=== PATIENT | female | born 1980 | race Caucasian/White ===

== ENCOUNTER → 2019-09-26 10:42 | Outpatient (BNVA) | payer BC, SELFPAY | PROVIDERS: Family Provider Family Medicine; PCP Family Medicine; Visit Provider Nurse Practitioner Women's Health | DX: R30.0 Dysuria (principal) | CPT/HCPCS: 80053 ==

== ENCOUNTER → 2019-11-02 10:59 | Outpatient (BNVA) | payer BC, SELFPAY | PROVIDERS: Family Provider Family Medicine; PCP Family Medicine; Visit Provider Family Medicine | DX: M25.571 Pain in right ankle and joints of right foot (principal); M25.572 Pain in left ankle and joints of left foot | CPT/HCPCS: 80053; 85025; 85651; 86038; 86140; 86431 ==

== ENCOUNTER → 2019-11-15 12:16 | Outpatient (BNVA) | payer BC, SELFPAY | PROVIDERS: Family Provider Family Medicine; PCP Family Medicine; Visit Provider Nurse Practitioner Women's Health | DX: N93.9 Abnormal uterine and vaginal bleeding, unspecified (principal) | CPT/HCPCS: 84439; 84443 ==

== ENCOUNTER → 2020-02-03 17:04 | Outpatient (BNVA) | payer BC, SELFPAY | PROVIDERS: PCP Family Medicine; Visit Provider Emergency Medicine | DX: Z20.828 Contact with and (suspected) exposure to other viral communicable diseases (principal) | CPT/HCPCS: 87635 ==

== ENCOUNTER 2020-08-05 13:41 | Outpatient (CLI) | payer OTHER, SELFPAY ==
--- NOTE | 2020-08-05 14:00 | MM_ITS ---
WS: [id number] DIAGNOSTIC BILATERAL DIGITAL MAMMOGRAM WITH implant displacement views and CAD LEFT breast ultrasound, limited HISTORY: left breast pain COMPARISON: 01/23/2016 TECHNIQUE: Bilateral craniocaudad, mediolateral oblique, and mediolateral views, implant displacement views are submitted. Computer aided detection utilized. Breast composition: There are scattered areas of fibroglandular density. Breast implants are present. There is slight volume loss in the LEFT breast implant as compared to 01/23/2016. Capsular contractio n. Markers at 5 and 9:00 as directed by the patient for pain. LEFT breast ultrasound, limited. Ultrasound is directed to the areas of pain. No abnormalities noted at 4:00 or 7:00 in the area of pa in. MM/[id number] IMPRESSION: BI-RADS: 2-Benign FOLLOW UP: 1 Year Follow-up Partially collapsed LEFT breast implant, new since 01/23/2016.
--- NOTE | 2020-08-05 15:00 | US_ITS ---
WS: [id number] DIAGNOSTIC BILATERAL DIGITAL MAMMOGRAM WITH implant displacement views and CAD LEFT breast ultrasound, limited HISTORY: left breast pain COMPARISON: 01/23/2016 TECHNIQUE: Bilateral craniocaudad, mediolateral oblique, and mediolateral views, implant displacement views are submitted. Computer aided detection utilized. Breast composition: There are scattered areas of fibroglandular density. Breast implants are present. There is slight volume loss in the LEFT breast implant as compared to 01/23/2016. Capsular contractio n. Markers at 5 and 9:00 as directed by the patient for pain. LEFT breast ultrasound, limited. Ultrasound is directed to the areas of pain. No abnormalities noted at 4:00 or 7:00 in the area of pa in. US/US breast LT limited* [id number] IMPRESSION: BI-RADS: 2-Benign FOLLOW UP: 1 Year Follow-up Partially collapsed LEFT breast implant, new since 01/23/2016.
== END 2020-08-05 13:42 | disposition home or self-care (01) ==
LOC: RADSHAW 13:47
PROVIDERS: PCP Family Medicine; Visit Provider Family Medicine
DX: N64.4 Mastodynia (principal)
CPT/HCPCS: 76642; 77066

== ENCOUNTER 2022-04-30 16:35 | Emergency (ER) | payer OTHER, SELFPAY ==
--- NOTE | 2022-04-30 16:55 | ED_ITS ---
HPI - Back Pain/Injury General: Chief Complaint: Back Pain/Injury Stated Complaint: low back pain Time Seen by Provider: 04/30/22 16:50 Source: patient Mode of arrival: ambulatory History of Present Illness: 41-year-old female who presents to the emergency room with complaining of low back pain. She is not sure of anything that particularly seem to set it off. No trauma. She thinks it may have been sleeping on family or bed for period of time. She denies any dysuria urgency or frequency she has significant low back pain without radiation into the extremities no fecal incontinence or urinary retention MD elicited complaint: back pain Pertinent past history: prior back pain Onset (ago): day(s) Timing: constant Severity: mild Similar Symptoms Previously: Yes Location: lumbar spine Radiation: none Exacerbating factors: none Relieving factors: none Associated symptoms: Deny abdominal pain, arthralgias, chills, change in bowel habits, difficulty walking, dysuria, fatigue, fecal incontinence, fever(s), hematuria, myalgias, nausea, numbness, syncope, tingling/numbness/burning, urinary frequency, urinary urgency, vomiting or weakness Review of Systems Const: Denies: fever(s), chills, fatigue or malaise ENMT: Denies: throat pain, ear or mastoid pain, nasal discharge or nasal congestion Card: Denies: chest pain, palpitations, irregular heart rhythm, edema or syncope Resp: Denies: dyspnea, productive cough or non-productive cough GI: Denies: abdominal pain, nausea, vomiting, fecal incontinence or change in bowel habits : Denies: dysuria, urinary frequency, urinary urgency or hematuria Musc: Reports: back pain Skin/Breast: Denies: rash or pruritus Neuro: Denies: difficulty walking PFS ED PFSH: Medical History Chronic neck pain No pertinent past medical history neghx: htn,dm,thyroid,DVT/PE Surgical History H/O breast augmentation (~2011) gel implants Family History Daughter Bleeding disorder vonWillebrand Son Bleeding disorder vonWillebrand Father Bleeding disorder Hypertension Mother Breast cancer Family/Other Colon cancer Maternal Aunt Diabetes Maternal uncle Grandmother Diabetes Maternal Denies family history of Ovarian cancer Heart disease Uterine cancer Thyroid disease Stroke Social History Smoking and tobacco status: never smoked Alcohol intake: never Physical Exam Const: GENERAL APPEARANCE: cooperative and comfortable ORIENTATION/CONSC IOUSNESS: Yes awake, Yes oriented to person, Yes oriented to place and Yes oriented to time HENMT: COMMON NORMALS: normocephalic, atraumatic and hearing grossly normal bilaterally HEAD & SCALP: normocephalic and atraumatic Resp: COMMON NORMALS: normal respiratory effort, No retractions, No use of accessory muscles and clear to auscultation bilaterally AUSCULTATION: clear to auscultation bilaterally Cardio: COMMON NORMALS: regular rate, regular rhythm and No murmurs present (Cardio) RATE: regular rate RHYTHM: regular rhythm GI: COMMON NORMALS: Soft to palpation and No hepatosplenomegaly present AUSCULTATION: Yes normoactive bowel sounds PALPATION: Yes Soft to palpation, No Tenderness to palpation present (GI), No Guarding due to palpation present (GI) and Yes No hepatosplenomegaly present Extremity: COMMON NORMALS: normal to inspection, capillary refill normal, no clubbing, cyanosis or edema, no calf tenderness and no pedal edema Neuro: SENSORIUM/ORIENTATION: Yes oriented to person, Yes oriented to place and Yes oriented to time OTHER: Deep tendon reflexes +2/4 patellar tendon dorsum plantarflexion ankle 5 5 sensation lower extremities normal no straight leg raising negative Skin: COMMON NORMALS: no rashes or lesions noted GENERAL SKIN EXAM: no rashes or lesions noted Course Vital Signs: Vital signs: Vital Signs Temperature 98.3 F 04/30/22 17:32 Pulse Rate 80 04/30/22 17:32 Respiratory Rate 14 04/30/22 17:32 Blood Pressure 127/90 04/30/22 17:32 Pulse Oximetry 100 04/30/22 17:32 Oxygen Delivery Me thod 04/30/22 17:32 MDM - Back Pain/Injury Medical Decision Making No sign of significant impingement or cauda equina syndrome at this time. Recommend anti-inflammatories muscle relaxers and steroid taper give hydrocodone to use as needed. Follow-up with his primary care if not improving she may need advanced imaging to further evaluate. Discussed with patient that since she does not have any red flag symptoms or any recent trauma we did not do imaging in this setting. Medical Records I reviewed the patient's medical records. Labs I reviewed the patient's lab results. Discharge Plan Discharge Patient Disposition: Home Clinical Impression: Strain of lumbar region Condition: Stable Prescriptions: New prednisone 20 mg tablet 20 mg PO TID Qty: 15 0RF Rx Instructions: 1 p.o. 3 times daily x3 days, 1 p.o. twice daily x2 days, 1 p.o. daily x2 days diclofenac sodium 75 mg tablet,delayed release (DR/EC) 75 mg PO Q12H PRN (Reason: pain) Qty: 20 0RF tizanidine 4 mg tablet 4 mg PO Q6H PRN (Reason: muscle spasticity) Qty: 20 0RF Rx Instructions: do not exceed 3 doses per 24 hrs hydrocodone-acetaminophen 5-325 mg tablet 1 tab PO Q6H PRN (Reason: pain) Qty: 15 0RF No Action escitalopram oxalate 10 mg tablet 10 mg PO DAILY Qty: 90 1RF Discharge Orders: Discharge ED (Routine); Ordered 04/30/22 Ordered By: Mert Deluna Referrals: Meri Vigil DO [Primary Care Provider] - Discharge Diet: Usual diet Discharge Activity: Resume usual activity Patient Instructions: Opioid Safety, Pain Management Coding Level of Care Code ED Supervisor Final for Rosetta Meyers
[2022-04-30 17:17] VITALS: RESP 16
[2022-04-30] MEDS: morphine 4 mg/mL SDV 1 mL IVP (17:17)
[2022-04-30] MEDS: ketorolac 30 mg/mL INJ IVP (17:17)
[2022-04-30] MEDS: dexamethasone 10 mg/mL INJ IVP (17:18)
[2022-04-30] MEDS: orphenadrine 30 mg/mL Inj 2 mL 60 MG IVP (17:18)
[2022-04-30 17:32] VITALS: BP 127/90; PULSE 80; RESP 14; TEMP 36.8; O2SAT 100
[2022-04-30 18:28] VITALS: BP 125/94; PULSE 79; RESP 12; O2SAT 99
== END 2022-04-30 18:32 | disposition home or self-care (01) ==
PROVIDERS: Emergency Provider Family Medicine; PCP Family Medicine
DX: S39.012A Strain of muscle, fascia and tendon of lower back, initial encounter (principal); X58.XXXA Exposure to other specified factors, initial encounter
CPT/HCPCS: 96374; 96375; 99284; J1100; J1885; J2270; J2360

== ENCOUNTER → 2022-06-02 15:00 | Outpatient (BNVA) | payer OTHER, SELFPAY | PROVIDERS: PCP Family Medicine; Visit Provider Nurse Practitioner Women's Health | DX: Z12.4 Encounter for screening for malignant neoplasm of cervix (principal); N93.9 Abnormal uterine and vaginal bleeding, unspecified | CPT/HCPCS: 84443; 84702; 85025; 87624 ==

== ENCOUNTER → 2022-06-24 11:01 | Outpatient (BNVA) | payer OTHER, SELFPAY | PROVIDERS: PCP Family Medicine; Visit Provider Nurse Practitioner Women's Health | DX: R10.2 Pelvic and perineal pain (principal) | CPT/HCPCS: 76830 ==

== ENCOUNTER 2022-07-14 14:18 | Outpatient (CLI) | payer OTHER, SELFPAY ==
--- NOTE | 2022-07-14 14:27 | MM_ITS ---
WS: [id number] BILATERAL 3D TOMOSYNTHESIS DIGITAL SCREENING MAMMOGRAPHY WITH CAD CLINICAL INFORMATION: Z12.39 - Encounter for other screening for malignant neop... HISTORY: Screening mammogram. No current complaints. COMPARISON: August 05, 2020 TECHNIQUE: Bilateral CC and MLO views. FINDINGS: Bilateral breast implants. Capsular contractions bilaterally. Slightly smaller LEFT breast implant is stable. Scattered fibroglandular densities bilaterally. No suspicious focal mass, asymmetry, calcifications, or architectural distortion. No evidence of malignancy. A few incidental punctate calcifications. MM/[id number] IMPRESSION: BI-RADS: 2-Benign FOLLOW UP: 1 Year Follow-up Recommend return to annual screening mammography.
== END 2022-07-14 14:19 | disposition home or self-care (01) ==
PROVIDERS: PCP Family Medicine; Visit Provider Nurse Practitioner Women's Health
DX: Z12.31 Encounter for screening mammogram for malignant neoplasm of breast (principal)
CPT/HCPCS: 77063; 77067

== ENCOUNTER → 2023-05-03 13:45 | Outpatient (BNVA) | payer OTHER, SELFPAY | PROVIDERS: PCP Family Medicine; Visit Provider Nurse Practitioner Women's Health | DX: R53.83 Other fatigue (principal); N92.0 Excessive and frequent menstruation with regular cycle; N95.1 Menopausal and female climacteric states; L65.9 Nonscarring hair loss, unspecified; M25.50 Pain in unspecified joint; G47.9 Sleep disorder, unspecified | CPT/HCPCS: 82306; 84439; 84443; 84481; 85025 ==

== ENCOUNTER → 2023-05-13 15:18 | Outpatient (BNVA) | payer OTHER, SELFPAY | PROVIDERS: PCP Family Medicine; Visit Provider Family Medicine | DX: R53.83 Other fatigue (principal); Z86.39 Personal history of other endocrine, nutritional and metabolic disease; R00.2 Palpitations; F41.1 Generalized anxiety disorder; N95.1 Menopausal and female climacteric states; L65.9 Nonscarring hair loss, unspecified | CPT/HCPCS: 86431 ==

== ENCOUNTER → 2023-05-17 15:00 | Outpatient (BNVA) | payer OTHER, SELFPAY | PROVIDERS: PCP Family Medicine; Visit Provider Family Medicine | DX: R53.83 Other fatigue (principal) | CPT/HCPCS: 85651; 86140 ==

== ENCOUNTER → 2023-07-29 16:26 | Outpatient (BNVA) | payer OTHER, SELFPAY | PROVIDERS: PCP Family Medicine; Visit Provider Family Medicine | DX: R53.83 Other fatigue (principal); Z86.39 Personal history of other endocrine, nutritional and metabolic disease | CPT/HCPCS: 82565; 84443; 85025; 85651; 86140; 86200; 86376; 86431; 86705; 86706; 86709; 86803; 87340 ==

== ENCOUNTER 2023-08-19 10:17 | Outpatient (CLI) | payer OTHER, SELFPAY ==
[2023-08-22 12:16] LABS: THYROID PEROXIDASE ANTIBODIES 1 IU/mL (<9)
[2023-08-22 12:35] LABS: Anti-Double Strand DNA AB 1 IU/mL; CENTROMERE B ANTIBODY <1.0 NEG AI (<1.0 NEG); JO-1 ANTIBODY <1.0 NEG AI (<1.0 NEG); JO-1 Antibody <1.0 NEG AI (<1.0 NEG); RNP ANTIBODY <1.0 NEG AI (<1.0 NEG); SCL-70 ANTIBODY 2.0 POS AI (<1.0 NEG); SJOGREN'S ANTIBODY (SS-A) <1.0 NEG AI (<1.0 NEG); SM ANTIBODY <1.0 NEG AI (<1.0 NEG); SS A Ro Sjogrens Antibody <1.0 NEG AI (<1.0 NEG); SS-B <1.0 NEG AI (<1.0 NEG); SS-B/LA IGG <1.0 NEG AI (<1.0 NEG); Smith Antibody <1.0 NEG AI (<1.0 NEG)
[2023-08-22 14:20] LABS: ANA SCREEN, IFA NEGATIVE (NEGATIVE)
[2023-08-22 15:46] LABS: Cyclic Citrullinated Peptide <16 UNITS
[2023-08-22 16:28] LABS: COMPLEMENT COMPONENT C3C 103 mg/dL (83-193); COMPLEMENT COMPONENT C4C 27 mg/dL (15-57)
[2023-08-23 12:04] LABS: ANCA Screen NEGATIVE (NEGATIVE)
[2023-08-24 15:09] LABS: COMPLEMENT, TOTAL (CH50) 17 U/mL (31-60)
[2023-08-25 01:19] LABS: Beta 2 Glycoprotein IGA <2.0 U/mL (<20.0); Beta 2 Glycoprotein IGG <2.0 U/mL (<20.0); Beta 2 Glycoprotein IGM <2.0 U/mL (<20.0)
== END 2023-08-19 10:18 | disposition home or self-care (01) ==
LOC: LAB 10:17
PROVIDERS: PCP Family Medicine; Visit Provider Family Medicine
DX: R53.83 Other fatigue (principal)
CPT/HCPCS: 36415; 86036; 86146; 86160; 86162; 86200; 86215; 86225; 86235; 86255; 86376

== ENCOUNTER 2023-11-17 06:08 | Observation (INO) | payer OTHER, SELFPAY ==
[2023-11-17] VITALS (11 sets, daily range): BP systolic 96–112; BP diastolic 60–71; PULSE 76–79; RESP 15–19; TEMP 36.4–37; O2SAT 97–100; BMI 25.6; BMI 26.3
--- NOTE | 2023-11-17 06:14 | ED_ITS ---
HPI - General Adult General: Chief complaint: Neuro Symptoms/Deficit Stated complaint: stroke symptoms Time Seen by Provider: 11/17/23 06:13 History of Present Illness: Associated symptoms: Deny chest pain, dyspnea or rash Related Data Home Medications Medication Instructions Recorded Confirmed tirzepatide 5 mg/0.5 mL mg SUBCUT 07/29/23 07/29/23 subcutaneous pen injector (Félix) Previous Rx's Medication Instructions Recorded escitalopram oxalate 10 mg tablet 10 mg PO DAILY #90 tabs 05/13/23 estradiol 0.5 mg tablet See Rx Instructions .Route 07/20/23 .COMPLEX #90 tabs progesterone micronized 100 mg 200 mg (2 x 100 mg) PO .bedtime 08/17/23 capsule (Prometrium) #60 caps Allergies Allergy/AdvReac Type Severity Reaction Status Date / Time adhesive tape Allergy ALGY-Bliste Verified 11/17/23 06:22 r amoxicillin Allergy ALGY-Hives Verified 11/17/23 06:22 cephalexin Allergy ALGY-Hives Verified 11/17/23 06:22 codeine Allergy ALGY-Hives Verified 11/17/23 06:22 latex Allergy ALGY-Bliste Verified 11/17/23 06:22 r Sulfa (Sulfonamide AdvReac ADR-Nausea Verified 11/17/23 06:22 Antibiotics) Review of Systems Const: Denies: fever(s) or chills Card: Denies: chest pain Resp: Denies: dyspnea GI: Denies: abdominal pain : Denies: dysuria, urinary frequency or urinary urgency Musc: Denies: neck pain or back pain Skin/Breast: Denies: rash PFSH ED PFSH: Medical History Fatigue Perimenopausal symptoms MAHI (generalized anxiety disorder) Carrier of von Willebrand disease No pertinent past medical history neghx: htn,dm,thyroid,DVT/PE Chronic neck pain Surgical History H/O breast augmentation (~2011) gel implants Family History Daughter Bleeding disorder vonWillebrand Son Bleeding disorder vonWillebrand Father Bleeding disorder Hypertension Mother Breast cancer Family/Other Colon cancer Maternal Aunt Diabetes Maternal uncle Grandmother Diabetes Maternal Denies family history of Ovarian cancer Heart disease Uterine cancer Thyroid disease Stroke Social History Smoking and tobacco/nicotine status: never used tobacco/nicotine Alcohol intake: current Substance/Drug Use: never Adopted: No service: No Current occupational exposures/hazards: No Physical Exam Const: COMMON NORMALS: no acute distress GENERAL APPEARANCE: cooperative an d comfortable ORIENTATION/CONSCIOUSNESS: Yes awake, Yes oriented to person, Yes oriented to place and Yes oriented to time HENMT: COMMON NORMALS: normocephalic, atraumatic and hearing grossly normal bilaterally HEAD & SCALP: normocephalic and atraumatic Resp: COMMON NORMALS: normal respiratory effort, No retractions, No use of accessory muscles and clear to auscultation bilaterally AUSCULTATION: clear to auscultation bilaterally Cardio: COMMON NORMALS: regular rate, regular rhythm and No murmurs present (Cardio) RATE: regular rate RHYTHM: regular rhythm GI: COMMON NORMALS: Soft to palpation and No hepatosplenomegaly present AU SCULTATION: Yes normoactive bowel sounds PALPATION: Yes Soft to palpation, No Tenderness to palpation present (GI), No Guarding due to palpation present (GI) and Yes No hepatosplenomegaly present Extremity: COMMON NORMALS: normal to inspection, capillary refill normal, no clubbing, cyanosis or edema, no calf tenderness and no pedal edema Neuro: SENSORIUM/ORIENTATION: Yes oriented to person, Yes oriented to place and Yes oriented to time Skin: COMMON NORMALS: no rashes or lesions noted GENERAL SKIN EXAM: no rashes or lesions noted Discharge Plan Discharge Condition: Stable Prescriptions: No Action Mounjaro 5 mg/0.5 mL pen injector SUBCUT escitalopram oxalate 10 mg tablet 10 mg PO DAILY Qty: 90 1RF estradiol 0.5 mg tablet See Rx Instructions .ROUTE .COMPLEX Qty: 90 3RF Dose Instruction: TAKE 1 TABLET BY MOUTH EVERY DAY WITH PROGESTERONE Rx Instructions: TAKE 1 TABLET BY MOUTH EVERY DAY WITH PROGESTERONE progesterone micronized [Prometrium] 100 mg capsule 200 mg PO .bedtime Qty: 60 11RF Rx Instructions: take in conjunction with estradiol Referrals: Yefri Younger MD [Primary Care Provider] - Coding Level of Care Code ED Rehabilitation Director for Rosetta Meyers
--- NOTE | 2023-11-17 06:22 | CTR_ITS ---
PROCEDURE INFORMATION: Exam: CT Head Without Contrast Exam date and time: 11/17/2023 6:25 AM Age: 43 years old Clinical indication: Stroke-like symptoms; Dizziness/giddiness and headache; Additional info: Symptoms of acute stroke TECHNIQUE: Imaging protocol: Computed tomography of the head without contrast. Radiation optimization: All CT scans at this facility use at least one of these dose optimization techniques: automated exposure control; mA and/or kV adjustment per patient size (includes targeted exams where dose is matched to clinical indication); or iterative reconstruction. Other technique: STROKE PROTOCOL was implemented. COMPARISON: No relevant prior studies available. RADIATION DOSE METRICS: Total DLP (mGy-cm): 1052 FINDINGS: Brain: Normal. No hemorrhage. Unremarkable white matter. No mass effect. Cerebral ventricles: No ventriculomegaly. Paranasal sinuses: Visualized sinuses are unremarkable. No fluid levels. Mastoid air cells: Visualized mastoid air cells are well aerated. Bones: Unremarkable. No acute fracture. Soft tissues: Unremarkable. CT/CT head thrombolytic [id number] IMPRESSION: No acute intracranial abnormality. ASSESSMENT: ASPECTS ([place] Stroke Program Early CT Score) is 10.
--- NOTE | 2023-11-17 06:24 | ED_ITS ---
HPI - Neuro Symptoms/Deficit 2 General: Chief Complaint: Neuro Symptoms/Deficit Stated Complaint: stroke symptoms Time Seen by Provider: 11/17/23 06:13 History of Present Illness: 43-year-old female who presents to the e mergency room complaining of not feeling well for the last several days. 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 Drooping of the corner of the mouth unable to raise the eyebrow. This morning she woke up around 4 AM she states she felt off but did not have any specific symptoms. She had decided to do some yoga at around 5 and noticed that she had weakness in her right arm and her right leg. She states the drooping on the right side of her face that is chronic is seem to be about the same but she had numbness in that distribution which she had not had previously as well as numbness in the right arm and leg which she had not previously had. In addition to this she feels like she has difficult time controlling her arm and leg more so the leg than the arm. Her initial NIH score is 4. Time: 06:13 Last Observed Normal: 05:00 Location: right arm, right leg and ataxia Severity: mild Quality: weak and numb Relieving factors: none Exacerbating factors: none Context: sudden onset On Anticoagulants: No Associated symptoms: Deny chest pain Treatments Prior to Arrival: none Related Data Home Medications Medication Instructions Recorded Confirmed tirzepatide 5 mg/0.5 mL 5 mg SUBCUT Q7D 07/29/23 11/17/23 subcutaneous pen injector (Mounjaro) ibuprofen 200 mg tablet (Advil) 200 mg PO Q6H PRN Pain 11/17/23 11/17/23 Previous Rx's Medication Instructions Recorded escitalopram oxalate 10 mg tablet 10 mg PO DAILY #90 tabs 05/13/23 estradiol 0.5 mg tablet See Rx Instructions .Route 07/20/23 .COMPLEX #90 tabs progesterone micronized 100 mg 200 mg (2 x 100 mg) PO .bedtime 08/17/23 capsule (Prometrium) #60 caps Allergies Allergy/AdvReac Type Severity Reaction Status Date / Time adhesive tape Allergy ALGY-Bliste Verified 11/17/23 06:22 r amoxicillin Allergy ALGY-Hives Verified 11/17/23 06:22 cephalexin Allergy ALGY-Hives Verified 11/17/23 06:22 codeine Allergy ALGY-Hives Verified 11/17/23 06:22 latex Allergy ALGY-Bliste Verified 11/17/23 06:22 r Sulfa (Sulfonamide AdvReac ADR-Nausea Verified 11/17/23 06:22 Antibiotics) Review of Systems 2 Const: Denies: fever(s) or chills Card: Denies: chest pain Resp: Denies: dyspnea GI: Denies: abdominal pain : Denies: dysuria, urinary frequency or urinary urgency Musc: Denies: neck pain or back pain Skin/Breast: Denies: rash PFSH ED 2 PFSH: Medical History Fatigue Perimenopausal symptoms MAHI (generalized anxiety disorder) Carrier of von Willebrand disease No pertinent past medical history neghx: htn,dm,thyroid,DVT/PE Chronic neck pain Surgical History H/O breast augmentation (~2011) gel implants Family History Daughter Bleeding disorder vonWillebrand Son Bleeding disorder vonWillebrand Father Bleeding disorder Hypertension Mother Breast cancer Family/Other Colon cancer Maternal Aunt Diabetes Maternal uncle Grandmother Diabetes Maternal Denies family history of Ovarian cancer Heart disease Uterine cancer Thyroid disease Stroke Social History Smoking and tobacco/nicotine status: never used tobacco/nicotine Alcohol intake: current Substance/Drug Use: never Adopted: No service: No Current occupational exposures/hazards: No Female Reproductive History: Date of last menstrual period: 11/09/23 NIH stroke score 2 NIHSS: Level Of Consciousness - 1a: 0 Level Of Consciousness Questions - 1b: Both Correct Level Of Consciousness Commands - 1c: Both Correct Best Gaze - 2: Normal Visual Hernandez - 3: No Visual Loss Facial Palsy - 4: N ormal Motor Arm Right - 5: No Drift Motor Arm Left - 5: No Drift Motor Leg Right - 6: Drift Motor Leg Left - 6: No Drift Limb Ataxia - 7: Present In Two Limbs Sensory - 8: Mild To Moderate Loss Best Language - 9: No Aphasia Dysarthia - 10: Normal Extinction And Inattention - 11: 0 Score: Total Score: 4 Physical Exam 2 Const: GENERAL APPEARANCE: cooperative ORIENTATION/CONSCIOUSNESS: Yes awake, Yes oriented to person, Yes oriented to place and Yes oriented to time HENMT: COMMON NORMALS: normocephalic, atraumatic and hearing grossly normal bilaterally HEAD & SCALP: normocephalic and atraumatic Resp: COMMON NORMALS: normal respiratory effort, No retractions, No use of accessory muscles and clear to auscultation bilaterally AUSCULTATION: clear to auscultation bilaterally Cardio: COMMON NORMALS: regular rate, regular rhythm and No murmurs present (Cardio) RATE: regular rate RHYTHM: regular rhythm GI: COMMON NORMALS: Soft to palpation and No hepatosplenomegaly present A USCULTATION: Yes normoactive bowel sounds PALPATION: Yes Soft to palpation, No Tenderness to palpation present (GI), No Guarding due to palpation present (GI) and Yes No hepatosplenomegaly present Extremity: COMMON NORMALS: normal to inspection, capillary refill normal, no clubbing, cyanosis or edema, no calf tenderness and no pedal edema Neuro: SENSORIUM/ORIENTATION: Yes oriented to person, Yes oriented to place and Yes oriented to time OTHER: See NIH scoring Skin: COMMON NORMALS: no rashes or lesions noted GENERAL SKIN EXAM: no rashes or lesions noted Course 2 Vital Signs: Vital signs: Vital Signs Temperature 98.6 F 11/17/23 06:40 Pulse Rate 78 11/17/23 08:22 Respiratory Rate 15 11/17/23 08:22 Blood Pressure 112/62 11/17/23 08:22 Pulse Oximetry 100 11/17/23 08:22 Oxygen Delivery Me thod Room Air 11/17/23 08:22 MDM - Neuro Symptoms/Deficit Medical Decision Making Patient returned from CT and went back to reexamine after discussing the case with Dr. Cantu. In her chart I had noted that she did said she is a carrier for von Willebrand's. Her children have been diagnosed with mild cases of von Willebrand's. She has not had any confirmed diagnosis she states when she was tested she was told she tested negative. Her symptoms seem to be improving I observed her ambulating from the bathroom back to her room without any difficulty or ataxia. Repeat testing she still has some mild ataxia compared to initial exam but now only in the right leg and is much improved from before. At the time of the initial testing she was quite tearful concerned that she may be having a stroke. She is doing better now has both with ataxia. Her weakness and drift in the right leg has resolved. She still has the facial droop but according to her it is not really any different than she has had in the past. On scratch testing in her arm and leg she states it still is some difference between the right and left leg and the right and left arms. Discussed the case with Dr. Cantu at this time he recommends holding off on treatment until he arrives and sees the patient he is and route. Her initial CT was reviewed in [facility] and is negative for acute bleed. Dr. Cantu arrived at 7 AM to evaluate the patient. Dr. Cantu has seen evaluate the patient her symptoms are improved she now has her stroke score of 2. He does not recommend any thrombolytics. Does recommend further workup. Have discussed with Dr. Gonzalez that he is ASA reviewed CTA head and neck we will also get an MRI of the head and place on observation. Medical Records I reviewed the patient's medical records. Lab Data I reviewed the patient's lab results. 11/17/23 06:21 11/17/23 06:[address] 11/17/23 06:22 IMPRESSION: No acute intracranial abnormality. ASSESSMENT: ASPECTS (Rhea Stroke Program Early CT Score) is 10. Head MRI 11/17/23 07:42 IMPRESSION: 1. No evidence of restricted diffusion to suggest acute ischemia. 2. No suspicious intracranial signal abnormalities. 3. No hemosiderin on the susceptibility weighted images. Laboratory Results WBC 6.07 10^3/uL (3.29-11.43) 11/17/23 06:21 RBC 4.62 10^6/uL (3.85-5.65) 11/17/23 06:21 Hgb 13.30 g/dL (11.27-16.99) 11/17/23 06:21 Hct 41.0 % (36-47) 11/17/23 06:21 MCV 88.7 fl (85-98) 11/17/23 06:21 MCH 28.8 pg (27-33) 11/17/23 06:21 MCHC 32.4 g/dL (30-55) 11/17/23 06:21 RDW 12.5 % (12.1-15.1) 11/17/23 06:21 Plt Count 236 10^3/cmm (157-399) 11/17/23 06:21 MPV 11.6 fL (7.4-10.4) H 11/17/23 06:21 Neut % (Auto) 50.2 % 11/17/23 06:21 Lymph % (Auto) 34.1 % 11/17/23 06:21 Letcher % (Auto) 11.2 % 11/17/23 06:21 Eos % (Auto) 3.1 % 11/17/23 06:21 Baso % (Auto) 1.2 % 11/17/23 06:21 Neut # (Auto) 3.05 10^3/uL (1.8-7.7) 11/17/23 06:21 Lymph # (Auto) 2.1 10^3/uL (0.8-4.8) 11/17/23 06:21 Letcher # (Auto) 0.7 10^3/uL (0.2-0.9) 11/17/23 06:21 Eos # (Auto) 0.2 10^3/uL (0.0-0.8) 11/17/23 06:21 Baso # (Auto) 0.1 10^3/uL (0.0-0.1) 11/17/23 06:21 Nucleated RBC % (auto) 0 % 11/17/23 06:21 Nucleated RBCs # 0.0 /100WBC 11/17/23 06:21 PT 12.40 SECONDS (12.1-14.9) 11/17/23 06:21 INR 0.90 (0.8-1.2) 11/17/23 06:21 APTT 29.2 SECONDS (23.9-36.7) 11/17/23 06:21 Sodium 137 mmol/L (136-145) 11/17/23 06:21 Potassium 3.7 mmol/L (3.5-5.1) 11/17/23 06:21 Chloride 103 mmol/L (98-107) 11/17/23 06:21 Carbon Dioxide 26 mmol/L (22-29) 11/17/23 06:21 Anion Gap 11.7 (5-19) 11/17/23 06:21 BUN 6 mg/dL (6-20) 11/17/23 06:21 Creatinine 0.6 mg/dL (0.5-0.9) 11/17/23 06:21 GFR Calculation 109.6 mL/min (90-130) 11/17/23 06:21 Glucose 90 mg/dL (65-115) 11/17/23 06:21 POC Glucose 78 mg/dL (70-110) 11/17/23 06:23 Calculated Osmolality 281 mOsm/kg (285-295) L 11/17/23 06:21 Calcium 9.0 mg/dL (8.5-10.5) 11/17/23 06:21 Total Bilirubin 0.4 mg/dL (0.15-1.2) 11/17/23 06:21 AST 15 U/L (0-32) 11/17/23 06:21 ALT 9 U/L (0-33) 11/17/23 06:21 Alkaline Phosphatase 51 U/L (35-105) 11/17/23 06:21 Total Protein 7.0 g/dL (6.6-8.7) 11/17/23 06:21 Albumin 4.4 g/dL (3.5-5.2) 11/17/23 06:21 Globulin 2.6 g/dL (1.3-4.6) 11/17/23 06:21 TSH 3.69 uIU/mL (0.27-4.20) 11/17/23 06:21 Ser , Semi-Qnt 1.00 mIU/mL 11/17/23 06:21 Urine Color Yellow (Yellow) 11/17/23 06:30 Urine Appearance Clear (CLEAR) 11/17/23 06:30 Urine pH 7.0 (5-7) 11/17/23 06:30 Ur Specific Braggs 1.003 (1.005-1.030) L 11/17/23 06:30 Urine Protein Negative (Negative) 11/17/23 06:30 Urine Glucose (UA) Negative (Normal) 11/17/23 06:30 Urine Ketones Negative (Negative) 11/17/23 06:30 Urine Blood Negative (Negative) 11/17/23 06:30 Urine Nitrate Negative (Negative) 11/17/23 06:30 Urine Bilirubin Negative (Negative) 11/17/23 06:30 Urine Urobilinogen 0.2 mg/dL (Negative) 11/17/23 06:30 Ur Leukocyte Esterase Negative (Negative) 11/17/23 06:30 Amorphous Sediment Not Reportable 11/17/23 06:30 Urine Opiates Screen Negative ng/mL (Negative) 11/17/23 06:30 Ur Barbiturates Screen Negative ng/mL (Negative) 11/17/23 06:30 Ur Phencyclidine Scrn Negative ng/mL (Negative) 11/17/23 06:30 Ur Amphetamines Screen Negative ng/mL (Negative) 11/17/23 06:30 U Benzodiazepines Scrn Negative ng/mL (Negative) 11/17/23 06:30 Urine Cocaine Screen Negative ng/mL (Negative) 11/17/23 06:30 U Marijuana (THC) Screen Negative ng/mL (Negative) 11/17/23 06:30 All radiology interpretation(s) finalized by discharge (MRI negative CTA head still pending hospitalist will follow-up with results) Discharge Plan Discharge Patient Disposition: Placed in Observation Admit Provider: Art Sanchez Clinical Impression: TIA (transient ischemic attack), Hormone replacement therapy, Facial nerve injury, trauma Coding Level of Care Code ED White Washer Piler for Rosetta Meyers
[2023-11-17 06:26] LABS: Basophils # 0.1 10^3/uL (0.0-0.1); Basophils % 1.2 %; Eosinophils # 0.2 10^3/uL (0.0-0.8); Eosinophils % 3.1 %; Lymphocytes # 2.1 10^3/uL (0.8-4.8); Lymphocytes % 34.1 %; Mean Corpuscular HGB Conc 32.4 g/dL (30-55); Mean Corpuscular Hemoglobin 28.8 pg (27-33); Mean Corpuscular Volume 88.7 fl (85-98); Mean Platelet Volume 11.6 fL (7.4-10.4); Monocytes # 0.7 10^3/uL (0.2-0.9); Monocytes % 11.2 %; Neutrophils # 3.05 10^3/uL (1.8-7.7); Neutrophils % 50.2 %; Nucleated Red Blood Cells % 0 %; Platelet Count 236 10^3/cmm (157-399); Red Blood Count 4.62 10^6/uL (3.85-5.65); Red Cell Distribution Width 12.5 % (12.1-15.1); White Blood Count 6.07 10^3/uL (3.29-11.43)
[2023-11-17 06:26] LABS: Glucose Point of Care 78 mg/dL (70-110)
--- NOTE | 2023-11-17 06:35 | ECG_ITS ---
[facility] Test Date: 2023-11-17 Pat Name: Kaity Sandra Department: Room: Gender: Female Telephone Sales Representative: : 1980 Requested By: Mert Esquivel Order Number: [id number] Sharita MD: Iván Whyte M.D. Measurements Intervals [place] Rate: 70 P: 53 MS: 165 QRS: 61 QRSD: 93 T: 52 QT: 397 QTc: 431 Interpretive Statements SINUS RHYTHM LOW QRS VOLTAGE IN PRECORDIAL LEADS [QRS DEFLECTION < 1.0 mV IN CHEST LEADS] Compared to ECG 06/24/2018 09:32:25 Low QRS voltage now present Electronically Signed On 11-17-2023 18:17:14 CDT by Iván Whyte M.D. [id number]
[2023-11-17 06:41] LABS: Alanine Aminotransferase 9 U/L (0-33); Albumin Level 4.4 g/dL (3.5-5.2); Alkaline Phosphatase 51 U/L (35-105); Anion Gap 11.7 (5-19); Aspartate Amino Transferase 15 U/L (0-32); Blood Urea Nitrogen 6 mg/dL (6-20); Carbon Dioxide 26 mmol/L (22-29); Chloride 103 mmol/L (98-107); Creatinine Clr Calc Pharmacy 106.9425; Globulin 2.6 g/dL (1.3-4.6); Glomerular Filtration Rate 109.6 mL/min (90-130); Glucose 90 mg/dL (65-115); Osmolality Calculated 281 mOsm/kg (285-295); Potassium 3.7 mmol/L (3.5-5.1); Sodium 137 mmol/L (136-145); Total Bilirubin 0.4 mg/dL (0.15-1.2)
[2023-11-17 06:43] LABS: Partial Thromboplastin Time 29.2 SECONDS (23.9-36.7)
[2023-11-17 06:46] LABS: Add Urine Microscopic? NO
[2023-11-17 06:59] LABS: Amphetamines Screen Urine Negative (Negative); Barbiturates Screen Urine Negative (Negative); Benzodiazepines Screen Urine Negative (Negative); Cocaine Screen Urine Negative (Negative); Opiate Screen Urine Negative (Negative); PCP Screen Urine Negative (Negative); THC Screen Urine Negative (Negative)
[2023-11-17 07:01] LABS: Bilirubin Urine Negative (Negative); Blood Urine Negative (Negative); Glucose Urine UA Negative (Normal); Ketones Urine Negative (Negative); Leukocyte Esterase Urine Negative (Negative); Nitrate Urine Negative (Negative); Protein Urine Negative (Negative); Specific Gravity, Urine 1.003 (1.005-1.030); Urine Appearance Clear (CLEAR); Urine Color Yellow (Yellow); Urobilinogen Urine 0.2 mg/dL (Negative)
[2023-11-17 07:03] LABS: Add Urine Culture? No; Charge for UA Resulting for Rev
--- NOTE | 2023-11-17 07:26 | CTR_ITS ---
PROCEDURE INFORMATION: Exam: CTA Head With Contrast, Arteriography Exam date and time: 11/17/2023 7:43 AM Age: 43 years old Clinical indication: Drowsiness or somnolence and headache and weakness; Additional info: CVA TECHNIQUE: Imaging protocol: Computed tomographic angiography of the head with contrast. Exam focused on the arteries. 3D rendering (Not supervised by radiologist): MIP and/or 3D reconstructed images were created by the technologist. Radiation optimization: All CT scans at this facility use at least one of these dose optimization techniques: automated exposure control; mA and/or kV adjustment per patient size (includes targeted exams where dose is matched to clinical indication); or iterative reconstruction. Contrast material: [id number]; Contrast volume: 100 ml; Contrast route: INTRAVENOUS (IV); COMPARISON: CT head thrombolytic [id number] 11/17/2023 6:25 AM RADIATION DOSE METRICS: Total DLP (mGy-cm): 408 FINDINGS: ANTERIOR CIRCULATION: Right internal carotid artery: Intracranial segment is patent with no significant stenosis. No aneurysm. Right middle cerebral artery: No occlusion or significant stenosis. No aneurysm. Right anterior cerebral artery: No occlusion or significant stenosis. No aneurysm. Left internal carotid artery: Intracranial segment is patent with no significant stenosis. No aneurysm. Left middle cerebral artery: No occlusion or significant stenosis. No aneurysm. Left anterior cerebral artery: No occlusion or significant stenosis. No aneurysm. POSTERIOR CIRCULATION: Right vertebral artery: No occlusion or significant stenosis. No aneurysm. Left vertebral artery: No occlusion or significant stenosis. No aneurysm. Basilar artery: No occlusion or significant stenosis. No aneurysm. Right posterior cerebral artery: No occlusion or significant stenosis. No aneurysm. Left posterior cerebral artery: No occlusion or significant stenosis. No aneurysm. Brain: No definite mass, mass effect, or midline shift. Cerebral ventricles: No ventriculomegaly. Bones/joints: Unremarkable. No acute fracture. Soft tissues: Unremarkable. PROCEDURE INFORMATION: Exam: CTA Neck With Contrast Exam date and time: 11/17/2023 7:43 AM Age: 43 years old Clinical indication: Drowsiness or somnolence and headache and weakness; Additional info: CVA TECHNIQUE: Imaging protocol: Computed tomographic angiography of the neck with contrast. Exam focused on the cervical segments of the vasculature. 3D rendering (Not supervised by radiologist): MIP and/or 3D reconstructed images were created by the technologist. Radiation optimization: All CT scans at this facility use at least one of these dose optimization techniques: automated exposure control; mA and/or kV adjustment per patient size (includes targeted exams where dose is matched to clinical indication); or iterative reconstruction. Contrast material: [id number]; Contrast volume: 100 ml; Contrast route: INTRAVENOUS (IV); COMPARISON: CT head thrombolytic [id number] 11/17/2023 6:25 AM RADIATION DOSE METRICS: Total DLP (mGy-cm): 408 FINDINGS: Right common carotid artery: No stenosis. No dissection or occlusion. Right internal carotid artery: No stenosis of the extracranial segment. No dissection or occlusion. Right external carotid artery: No occlusion or stenosis of the origin. Left common carotid artery: No stenosis. No dissection or occlusion. Left internal carotid artery: No stenosis of the extracranial segment. No dissection or occlusion. Left external carotid artery: No occlusion or stenosis of the origin. Right vertebral artery: No stenosis. No dissection or occlusion. Left vertebral artery: No stenosis. No dissection or occlusion. Soft tissues: Normal. No significant soft tissue swelling. Bones/joints: No acute fracture. CT/CT angio headneck* [id number] IMPRESSION: No large vessel stenosis or occlusion. IMPRESSION: No stenosis or occlusion. REFERENCES: NASCET CRITERIA. The degree of stenosis in the cervical segment of the internal carotid artery is based on NASCET criteria. Normal is no stenosis. Mild is less than 50% stenosis. Moderate is 50-69% stenosis. Severe is 70% to 99% stenosis. Total occlusion is no detectable patent lumen.
--- NOTE | 2023-11-17 07:35 | P.CONIM_ITS ---
Providers/Reason For Consult 2 Consulting Physician/Specialty*: Dharmesh Cantu MD neurology and epilepsy Reason for Consult*: Acute care/code stroke emergency department room #13 Primary Care Provider: Yefri Younger MD History of Present Illness History of Present Illness Kaity Sandra is a 43 year old female with history of being a von Willebrand disease carrier, postural orthostatic tachycardic syndrome (POTS) type symptoms, right cranial nerve VII weakness since , and generalized anxiety disorder. The patient reports that on 11/17/2023 around 5 AM she was performing yoga exercises. Patient stated that she was on her hands and knees and experienced acute onset of right sided numbness weakness and ataxia and blurred vision associated with tunnel vision. The patient stated that on 11/16/2023 she was experiencing left-sided headache and facial pain. The patient presented to the [facility] emergency room on 11/17/2023. Code stroke was initiated at 6:[address] 11/17/2023 reported to revealed no acute findings. Point of contact glucose Accu-Chek 78 Patient's initial NIH score = 4 (performed by Dr. Deluna, emergency room physician) Neurological NIH score = 2 (secondary to mild ataxia/clumsiness in the right lower extremity on eeet-tlng-tsys maneuver =1, and decrease sensation over the right face and a V1 through V3 distribution and right upper extremity =1). According to the patient, approximately 6 months ago she experienced similar symptoms involving the right side of her body but did not seek immediate medical attention. The patient stated that she spoke with a friend who is a nurse practitioner who informed the patient that her symptoms were suggestive of a TIA. Note: In view of the patient's symptoms improving with NIH score changing from = 4 to a NIH score = 2, patient was not a candidate for intravenous thrombolytics and no intravenous thrombolytics were administered. Drug allergies: Amoxicillin which resulted in hives Cephalexin which resulted in hives Codeine which resulted in hives Latex which resulted in blisters Adhesive tape which resulted in blisters Sulfonamide antibiotics which resulted in nausea Current medications: Lexapro 10 mg p.o. daily Estradiol 0.5 mg to take as instructed Ibuprofen 200 mg p.o. every 6 hours as needed for pain Progesterone 100 mg capsules 2 p.o. 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 She admits to occasional alcohol use socially. The patient denied other drug use. Family history: Remarkable for a son with von Willebrand's disease disease and epilepsy Remarkable for a daughter with von Willebrand's disease and POTS syndrome Family history negative for strokes Occupation: Massage therapist Review of Systems 2 General: Reports: 10 or more systems reviewed and unremarkable except in HPI and below Medications/Allergies Home Medications Medication Instructions Recorded Confirmed Last Taken Type escitalopram oxalate 10 mg tablet 10 mg PO DAILY #90 tabs 05/13/23 11/17/23 11/16/23 20:00 Rx estradiol 0.5 mg tablet See Rx Instructions .Route 07/20/23 11/17/23 11/13/23 Rx .COMPLEX #90 tabs tirzepatide 5 mg/0.5 mL 5 mg SUBCUT Q7D 07/29/23 11/17/23 11/13/23 History subcutaneous pen injector (Mounjaro) progesterone micronized 100 mg 200 mg (2 x 100 mg) PO .bedtime 08/17/23 11/17/23 11/13/23 Rx capsule (Prometrium) #60 caps ibuprofen 200 mg tablet (Advil) 200 mg PO Q6H PRN Pain 11/17/23 11/17/23 Unknown History Allergies Allergy/AdvReac Type Severity Reaction Status Date / Time adhesive tape Allergy ALGY-Bliste Verified 11/17/23 06:22 r amoxicillin Allergy ALGY-Hives Verified 11/17/23 06:22 cephalexin Allergy ALGY-Hives Verified 11/17/23 06:22 codeine Allergy ALGY-Hives Verified 11/17/23 06:22 latex Allergy ALGY-Bliste Verified 11/17/23 06:22 r Sulfa (Sulfonamide AdvReac ADR-Nausea Verified 11/17/23 06:22 Antibiotics) PFSH Acute 2 PFSH: Medical History Fatigue Perimenopausal symptoms MAHI (generalized anxiety disorder) Carrier of von Willebrand disease No pertinent past medical history neghx: htn,dm,thyroid,DVT/PE Chronic neck pain Surgical History H/O breast augmentation (~2011) gel implants Family History Daughter Bleeding disorder vonWillebrand Son Bleeding disorder vonWillebrand Father Bleeding disorder Hypertension Mother Breast cancer Family/Other Colon cancer Maternal Aunt Diabetes Maternal uncle Grandmother Diabetes Maternal Denies family history of Ovarian cancer Heart disease Uterine cancer Thyroid disease Stroke Social History Smoking and tobacco/nicotine status: never used tobacco/nicotine Alcohol intake: current Substance/Drug Use: never Adopted: No service: No Current occupational exposures/hazards: No Female Reproductive History: Date of last menstrual period: 11/09/23 Vitals/I&O/Wt Last Vital Signs Temp 98.6 F 11/17/23 06:40 Pulse 78 11/17/23 06:40 Resp 16 11/17/23 06:40 BP 108/70 11/17/23 06:40 Pulse Ox 98 11/17/23 06:40 O2 Del Method Room Air 11/17/23 06:40 Weight last 48 hrs Weight 140 lb Physical Exam 2 Narrative: Point of contact glucose Accu-Chek 78 Patient's initial NIH score = 4 (performed by Dr. Deluna, emergency room physician) Neurological NIH score = 2 (secondary to mild ataxia/clumsiness in the right lower extremity on ljbl-ohvi-edmg maneuver =1, and decrease sensation over the right face and a V1 through V3 distribution and right upper extremity =1). Noncontrast head CT 11/17/2023 reported to revealed no acute findings. Blood pressure 108/70 heart rate 78 respiration 16 temperature 98.6 O2 saturation 98% on room air The patient is alert and oriented x 3. Speech fluent. Head normocephalic. Neck supple. 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 Other cranial nerves were intact. Pupils 5 mm in darkness equal round and reactive to light and accommodation. Pupils 3 to 4 mm in light equal round and reactive to light and accommodation. Extraocular movements intact. There were no nystagmus. Visual gramajo appear to be full via confrontation. Motor testing 5/5 bilaterally. There was no drift. Gqmztj-iwhe-jenlca revealed no ataxia. Ctqj-rxaz-fixy maneuver revealed some mild ataxia in the right lower extremity although the patient was able to perform the maneuver. Patient was also reported to walk to the bathroom without assistance without ataxia. Deep tendon reflexes 2+ bilaterally. Plantar responses flexor bilaterally. There was no clonus. Sensory examination revealed decreased sensation over the right face and a V1-V3 distribution and decreased sensation in the right upper extremity. Throat clear. Lungs clear. Heart regular rhythm and rate. Extremities were negative for clubbing cyanosis or edema. Pulses 2-3+ bilaterally. Data 11/17/23 06:21 11/17/23 06:21 A&P Assessment and plan (1) TIA (transient ischemic attack): Impression: 1. Left subcortical versus cortical transient ischemic attack versus stroke 11/17/2023 2. Nita of of von Willebrand's disease 3. Scleroderma 4. History suggestive of left subcortical versus cortical transient ischemic attack 6 months ago 5. Generalized anxiety disorder 6. Chronic right peripheral cranial nerve VII weakness involving the upper and lower face since 7. Hormone replacement therapy 8. Family history of 2 children with von Willebrand's disease Plan: 1. Recommend hospital admission to observe for any worsening of the patient's symptoms 2. Neurochecks and vital signs per NIH stroke protocol 3. Discontinue ibuprofen since nonsteroidal anti-inflammatory medications other than aspirin have been reported to be associated with increased risk for heart disease and cerebrovascular disease 4. Recommend obtaining head MRI without and with contrast to assess for acute left thalamic stroke 5. Recommend obtaining carotid duplex study to assess for carotid or vertebral artery stenosis 6. Recommend obtaining 2D echocardiogram to assess for embolic source for stroke 7. Occupational therapy, physical therapy consults. Note: Patient has no dysphagia 8. Fall precautions 9. Stroke education and provide patient and patient's with stroke pamphlet 10. Recommend starting cholesterol-lowering agent per NIH stroke protocol 11. Since the patient has reported to have history of being a carrier of von Willebrand's disease and von Willebrand's disease has been reported to be associated with increased risk for bleeding and although the patient is reported to only be a carrier of von Willebrand's disease antiplatelet therapy was not started. Recommend hematology evaluation to determine if patient is candidate for antiplatelet therapy Consult Attestations 2 Medical Necessity Statement: The patient was evaluated by neurology for acute care/code stroke emergency department room #13 Coding Level of Care Code 48537 Diagnoses TIA (transient ischemic attack) G45.9
--- NOTE | 2023-11-17 07:42 | MR_ITS ---
WS: [id number] MRI HEAD WITHOUT CONTRAST TECHNIQUE: Sagittal T1, T2 axial, T2 axial FLAIR, axial and coronal T1 images, axial susceptibility w eighted imaging, axial diffusion weighted images, and coronal T2 images were obtained. CLINICAL INFORMATION: right leg and arm weakness COMPARISON: CT head 11/17/2023 FINDINGS: No evidence of restricted diffusion to suggest acute ischemia. Ventricular system and basal cisterns are patent. No suspicious intracranial signal abnormalities. Normal miller-white differentiation. Rosa l posterior fossa. Normal vascular flow voids at the skull base. Paranasal sinuses are well aerated. Normal posterior nasopharynx. Mastoid air cells are well aerated. No hemosiderin on the susceptibly weighted images. Normal optic chiasm and pituitary infundibulum. Te mporal lobes and hippocampal formations are normal in appearance. No other suspicious findings. MR/MR head wo con* [id number] IMPRESSION: 1. No evidence of restricted diffusion to suggest acute ischemia. 2. No suspicious intracranial signal abnormalities. 3. No hemosiderin on the susceptibility weighted images.
[2023-11-17] MEDS: iohexol 350 mg/mL 500 mL Btl (per mL) IV (07:51)
[2023-11-17 08:21] LABS: Thyroid Stimulating Hormone 3.69 uIU/mL (0.27-4.20)
--- NOTE | 2023-11-17 08:50 | USCV_ITS ---
Kaity Sandra Age: 43 Gender: F : 1980 Exam Date: 11/17/2023 09:04 Ordering Phys: Art Sanchez MD Technologist: MURIEL [place]am [place] [facility] [place]: CVA BP: 11 / 66 HR: Rhythm: Sinus Technical Quality: Very technically difficult study MEASUREMENTS (Male / Female) Normal Values 2D ECHO LV Diastolic Diameter PLAX 3.1 cm 4.2 - 5.9 / 3.9 - 5.3 cm IVS Diastolic Thickness 1.5 cm 0.6 - 1.0 / 0.6 - 0.9 cm IVS Systolic Thickness 1.7 cm LVPW Diastolic Thickness 1.5 cm 0.6 - 1.0 / 0.6 - 0.9 cm LVPW Systolic Thickness 1.7 cm LVOT Diameter 2.0 cm LV Ejection Fraction 2D Teich 65.8 % LA Diameter 2.1 cm Aorta at Sinotubular Diameter 2.0 cm IVC Diameter 1.4 cm M-MODE LA Ao Ratio MM 0.7 AV Cusp Separation MM 1.5 cm FINDINGS Left Ventricle Normal left ventricular size and systolic function, EF 66% Segmental wall motion analysis difficult. No gross abnormalities noted Right Ventricle Possibly of normal size ejection fraction Right Atrium Possibly normal size Left Atrium Possibly of normal size Mitral Valve No gross abnormalities noted Aortic Valve Possibly of normal morphology. Could not be visualized well because of the poor apical windows Tricuspid Valve No gross abnormalities noted Pulmonic Valve Pulmonic valve not well visualized. Pericardium No pericardial effusion. Aorta Normal aortic annulus size. IVC Normal inferior vena cava. CONCLUSIONS The study is suboptimal quality because of the limited ultrasonic windows. Only parasternal and substernal views were obtained. Normal left ventricular size and systolic function, EF 66%. Segmental wall motion analysis difficult. No gross abnormalities noted. No obvious stenotic or regurgitant lesions were noted in the aortic, tricuspid and mitral valves. No pericardial effusion No obvious intracardiac masses based on the limited views Technically limited study because of the lack of apical windows Dr Ignacio Rosales MD [facility] (Electronically Signed) Final Date: 17 November 2023 13:42 S
--- NOTE | 2023-11-17 09:05 | P.HP_ITS ---
Providers/Chief Complaint 2 Admitting Physician: Art Sanchez MD Primary Care Provider: Yefri Younger MD Chief Complaint: stroke symptoms History of Present Illness Kaity Sandra is a 43 year old female presenting to the emergency department concerned with right sided weakness. She states she was having trouble sleeping last night, having vivid dreams, and her reports she was likely talking in her dreams complaining of pain in her eyes. He reported he was rubbing her face and eyes around 2 AM or so. She eventually woke up, and started doing yoga early in the morning. While doing yoga around 4 to 5 AM, she noticed a right arm seemed floppy, and she was having numbness and tingling in her face arm and leg. This was most pronounced in the arm and face, and the leg least affected. She stopped doing this, but the discomfort persisted so she called a healthcare associates she knew, who directed her to go to the emergency department. She states she has improved since being in the ER, but still has some right facial numbness, and right arm numbness. She reports she still feels a little bit of weakness in the right arm. She feels like the right leg is heavy. She denies any recent fevers, although she has been fatigued over the last week. Has had a headache, but this is not unusual for her. While she was doing yoga, she felt like she even had tunnel vision. She was evaluated by neurology and given a stroke scale of 4 initially by the ER physician, to by the neurologist. She received the 2 secondary to mild ataxia and clumsiness in the right lower extremity lajz-vn-uads and decreased sensation over the right face. She did not qualify for tPA based on her stroke scale. Symptoms have improved as well in the emergency department. Review of Systems 2 General: Reports: 10 or more systems reviewed and unremarkable except in HPI and below Card: Denies: chest pain Resp: Denies: dyspnea GI: Denies: abdominal pain Medications/Allergies Home Medications Medication Instructions Recorded Confirmed Last Taken Type escitalopram oxalate 10 mg tablet 10 mg PO DAILY #90 tabs 05/13/23 11/17/23 11/16/23 20:00 Rx estradiol 0.5 mg tablet See Rx Instructions .Route 07/20/23 11/17/23 11/13/23 Rx .COMPLEX #90 tabs tirzepatide 5 mg/0.5 mL 5 mg SUBCUT Q7D 07/29/23 11/17/23 11/13/23 History subcutaneous pen injector (Mounjaro) progesterone micronized 100 mg 200 mg (2 x 100 mg) PO .bedtime 08/17/23 11/17/23 11/13/23 Rx capsule (Prometrium) #60 caps ibuprofen 200 mg tablet (Advil) 200 mg PO Q6H PRN Pain 11/17/23 11/17/23 Unknown History Allergies Allergy/AdvReac Type Severity Reaction Status Date / Time adhesive tape Allergy ALGY-Bliste Verified 11/17/23 06:22 r amoxicillin Allergy ALGY-Hives Verified 11/17/23 06:22 cephalexin Allergy ALGY-Hives Verified 11/17/23 06:22 codeine Allergy ALGY-Hives Verified 11/17/23 06:22 latex Allergy ALGY-Bliste Verified 11/17/23 06:22 r Sulfa (Sulfonamide AdvReac ADR-Nausea Verified 11/17/23 06:22 Antibiotics) PFSH Acute 2 PFSH: Medical History (Updated 11/17/23 @ 09:10 by Art Sanchez MD) Facial nerve injury, trauma Right side Fatigue Perimenopausal symptoms MAHI (generalized anxiety disorder) Carrier of von Willebrand disease No pertinent past medical history neghx: htn,dm,thyroid,DVT/PE Chronic neck pain Surgical History H/O breast augmentation (~2011) gel implants Family History Daughter Bleeding disorder vonWillebrand Son Bleeding disorder vonWillebrand Father Bleeding disorder Hypertension Mother Breast cancer Family/Other Colon cancer Maternal Aunt Diabetes Maternal uncle Grandmother Diabetes Maternal Denies family history of Ovarian cancer Heart disease Uterine cancer Thyroid disease Stroke Social History Smoking and tobacco/nicotine status: never used tobacco/nicotine Alcohol intake: current Substance/Drug Use: never Adopted: No service: No Current occupational exposures/hazards: No Female Reproductive History: Date of last menstrual period: 11/09/23 Vitals/I&O/Wt Last Vital Signs Temp 98.6 F 11/17/23 06:40 Pulse 78 11/17/23 08:22 Resp 15 11/17/23 08:22 BP 112/62 11/17/23 08:22 Pulse Ox 100 11/17/23 08:22 O2 Del Method Room Air 11/17/23 08:22 Weight last 48 hrs Weight 63.503 kg Physical Exam 2 Narrative: General Exam no distress Neuro exam. Swallows ice and water without difficulty and no evidence of aspiration when I placed her in an upright position and gave her glass. I concur with neurology's assessment of stroke scale of approximately 1 to 2. She does have some persistent numbness right side of face. She cannot completely close the eye on the right, and exam is consistent with right facial nerve palsy HEENT: Atraumatic normocephalic. Oropharynx clear, tongue midline Neck supple with no lymphadenopathy thyromegaly Cardiovascular regular rate and rhythm without murmur Lungs clear Abdomen is soft, no obvious organomegaly exam is deferred Extremities no sinus clubbing edema, cap refill brisk Skin no rash Data 11/17/23 06:21 11/17/23 06:21 Other Labs: PT and PTT are normal LFTs are normal Lipid panel is ordered TSH is normal Albumin, calcium is normal Serum test demonstrates no Urinalysis is negative Urine drug screen is negative MRI which I have ordered and is now back demonstrates no abnormality CT head no acute abnormality, I reviewed Head and neck CTA, echocardiogram is pending EKG which I reviewed demonstrates sinus rhythm, normal axis, no acute changes. A&P Assessment and plan (1) TIA (transient ischemic attack): Concern of TIA. She related to neurology that she had had an event that was similar in the past. MRI head without contrast is normal CT head is normal Echo, CTA pending Observation Check lipid profile Neurochecks Telemetry Hold ibuprofen and estrogen products Therapy consultations Encourage hydration I did bedside swallow, she can have a low-cholesterol diet Visited briefly with hematology. Considering her PTT is normal, risk of bleeding is extremely low and less than risk of thrombosis. Low-dose aspirin is indicated. Plan History of right facial nerve palsy Family history of von Willebrand's disease. Her PTT is in the middle of normal. Other medical problems as outlined in past medical history Full code Lovenox for DVT prophylaxis Attestations 2 Medical Necessity Statement*: Will require less than 2 midnight stay for evaluation and treatment of TIA Diagnoses TIA (transient ischemic attack) G45.9 Time Spent (min) 53
[2023-11-17 09:15] LABS: Chol HDL Ratio 1.84 mg/dL (0.0-4.40); Cholesterol 142 mg/dL (0-200); HDL Cholesterol 77 mg/dL (60-100); LDL Cholesterol Calculated 56 mg/dL (50-129); LDL HDL Ratio 0.73 RATIO (0.00-3.22); Triglycerides 44 mg/dL (0-150)
[2023-11-17] MEDS: aspirin 81 mg EC Tablet PO (11:18)
[2023-11-17] MEDS: enoxaparin 40 mg/0.4 mL Syringe SUBCUT (11:18)
[2023-11-17] MEDS: sodium chloride 0.9% 250 ML IV (11:56)
--- NOTE | 2023-11-17 15:08 | PM.DCS ---
Discharge Providers Date of Admission: 11/17/23 08:27 Date of Discharge: November 17, 2023 Attending Provider at Admission: Art Sanchez MD Attending Provider at Discharge: Art Sanchez MD Primary Care Provider: Yefri Younger MD Diagnoses at Discharge Discharge Diagnosis (1) TIA (transient ischemic attack): Status: Acute Reason for Visit Reason for Visit: stroke symptoms Hospital Course Hospital Course Patient is a 43-year-old white female, who presented with some weakness on the right side, and increased numbness and tingling in her right face and right upper extremity. NIHSS stroke scale by neurology was 2, and when I evaluated her 1. She had also had a significant headache. She underwent a CTA demonstrating no significant disease. CT head noncontrast was without bleed or abnormality. MRI head without contrast negative. EKG sinus rhythm on telemetry while in house sinus rhythm. Echocardiogram was essentially normal. With resolution of her symptomatology, no significant weakness, perhaps only slight facial numbness left on the right it was thought she could discharge home. She was instructed to continue aspirin 81 mg daily, Lipitor 40 mg daily, have an event monitor placed which was already ordered, stop hormonal treatment, follow-up with her primary care provider 3 to 5 days and neurology within 1 week. She and her were able to ask questions and agreed with the plan. Physical Exam Narrative: No distress Neuro peripheral 7th nerve palsy noted. Otherwise no strength, gait, cerebellar function abnormalities. Subjective numbness right face mild. CV regular rate and rhythm Lungs clear Discharge Data Studies Completed and Pending Completed Studies During Hospitalization Category Date Time Status CT head thrombolytic 02533 Stat Cat Scan 11/17/23 06:22 Completed CTA head neck [CT angio headneck* 32493/12723] Stat Cat Scan 11/17/23 07:26 Completed MR head wo con* [id number] Routine MRI 11/17/23 07:42 Completed CV. echo complete* [id number] Routine Ultrasound 11/17/23 08:50 Completed Pending at discharge Category Date Time Status Lipid Panel AM LABS Lab 11/18/23 04:00 Ordered Radiology Impressions Head CT 11/17/23 06:22 IMPRESSION: No acute intracranial abnormality. ASSESSMENT: ASPECTS ([place] Stroke Program Early CT Score) is 10. Head/Neck CTA 11/17/23 07:26 IMPRESSION: No large vessel stenosis or occlusion. IMPRESSION: No stenosis or occlusion. REFERENCES: NASCET CRITERIA. The degree of stenosis in the cervical segment of the internal carotid artery is based on NASCET criteria. Normal is no stenosis. Mild is less than 50% stenosis. Moderate is 50-69% stenosis. Severe is 70% to 99% stenosis. Total occlusion is no detectable patent lumen. Head MRI 11/17/23 07:42 IMPRESSION: 1. No evidence of restricted diffusion to suggest acute ischemia. 2. No suspicious intracranial signal abnormalities. 3. No hemosiderin on the susceptibility weighted images. Laboratory Results WBC 6.07 10^3/uL (3.29-11.43) 11/17/23 06:21 RBC 4.62 10^6/uL (3.85-5.65) 11/17/23 06:21 Hgb 13.30 g/dL (11.27-16.99) 11/17/23 06:21 Hct 41.0 % (36-47) 11/17/23 06:21 MCV 88.7 fl (85-98) 11/17/23 06:21 MCH 28.8 pg (27-33) 11/17/23 06:21 MCHC 32.4 g/dL (30-55) 11/17/23 06:21 RDW 12.5 % (12.1-15.1) 11/17/23 06:21 Plt Count 236 10^3/cmm (157-399) 11/17/23 06:21 MPV 11.6 fL (7.4-10.4) H 11/17/23 06:21 Neut % (Auto) 50.2 % 11/17/23 06:21 Lymph % (Auto) 34.1 % 11/17/23 06:21 Valencia % (Auto) 11.2 % 11/17/23 06:21 Eos % (Auto) 3.1 % 11/17/23 06:21 Baso % (Auto) 1.2 % 11/17/23 06:21 Neut # (Auto) 3.05 10^3/uL (1.8-7.7) 11/17/23 06:21 Lymph # (Auto) 2.1 10^3/uL (0.8-4.8) 11/17/23 06:21 Valencia # (Auto) 0.7 10^3/uL (0.2-0.9) 11/17/23 06:21 Eos # (Auto) 0.2 10^3/uL (0.0-0.8) 11/17/23 06:21 Baso # (Auto) 0.1 10^3/uL (0.0-0.1) 11/17/23 06:21 Nucleated RBC % (auto) 0 % 11/17/23 06:21 Nucleated RBCs # 0.0 /100WBC 11/17/23 06:21 PT 12.40 SECONDS (12.1-14.9) 11/17/23 06:21 INR 0.90 (0.8-1.2) 11/17/23 06:21 APTT 29.2 SECONDS (23.9-36.7) 11/17/23 06:21 Sodium 137 mmol/L (136-145) 11/17/23 06:21 Potassium 3.7 mmol/L (3.5-5.1) 11/17/23 06:21 Chloride 103 mmol/L (98-107) 11/17/23 06:21 Carbon Dioxide 26 mmol/L (22-29) 11/17/23 06:21 Anion Gap 11.7 (5-19) 11/17/23 06:21 BUN 6 mg/dL (6-20) 11/17/23 06:21 Creatinine 0.6 mg/dL (0.5-0.9) 11/17/23 06:21 GFR Calculation 109.6 mL/min (90-130) 11/17/23 06:21 Glucose 90 mg/dL (65-115) 11/17/23 06:21 POC Glucose 78 mg/dL (70-110) 11/17/23 06:23 Calculated Osmolality 281 mOsm/kg (285-295) L 11/17/23 06:21 Calcium 9.0 mg/dL (8.5-10.5) 11/17/23 06:21 Total Bilirubin 0.4 mg/dL (0.15-1.2) 11/17/23 06:21 AST 15 U/L (0-32) 11/17/23 06:21 ALT 9 U/L (0-33) 11/17/23 06:21 Alkaline Phosphatase 51 U/L (35-105) 11/17/23 06:21 Total Protein 7.0 g/dL (6.6-8.7) 11/17/23 06:21 Albumin 4.4 g/dL (3.5-5.2) 11/17/23 06:21 Globulin 2.6 g/dL (1.3-4.6) 11/17/23 06:21 Triglycerides 44 mg/dL (0-150) 11/17/23 06:21 Cholesterol 142 mg/dL (0-200) 11/17/23 06:21 LDL Cholesterol, Calc 56 mg/dL (50-129) 11/17/23 06:21 HDL Cholesterol 77 mg/dL (60-100) 11/17/23 06:21 LDL/HDL Ratio 0.73 RATIO (0.00-3.22) 11/17/23 06:21 Cholesterol/HDL Ratio 1.84 mg/dL (0.0-4.40) 11/17/23 06:21 TSH 3.69 uIU/mL (0.27-4.20) 11/17/23 06:21 Ser , Semi-Qnt 1.00 mIU/mL 11/17/23 06:21 Urine Color Yellow (Yellow) 11/17/23 06:30 Urine Appearance Clear (CLEAR) 11/17/23 06:30 Urine pH 7.0 (5-7) 11/17/23 06:30 Ur Specific Winkelman 1.003 (1.005-1.030) L 11/17/23 06:30 Urine Protein Negative (Negative) 11/17/23 06:30 Urine Glucose (UA) Negative (Normal) 11/17/23 06:30 Urine Ketones Negative (Negative) 11/17/23 06:30 Urine Blood Negative (Negative) 11/17/23 06:30 Urine Nitrate Negative (Negative) 11/17/23 06:30 Urine Bilirubin Negative (Negative) 11/17/23 06:30 Urine Urobilinogen 0.2 mg/dL (Negative) 11/17/23 06:30 Ur Leukocyte Esterase Negative (Negative) 11/17/23 06:30 Amorphous Sediment Not Reportable 11/17/23 06:30 Urine Opiates Screen Negative ng/mL (Negative) 11/17/23 06:30 Ur Barbiturates Screen Negative ng/mL (Negative) 11/17/23 06:30 Ur Phencyclidine Scrn Negative ng/mL (Negative) 11/17/23 06:30 Ur Amphetamines Screen Negative ng/mL (Negative) 11/17/23 06:30 U Benzodiazepines Scrn Negative ng/mL (Negative) 11/17/23 06:30 Urine Cocaine Screen Negative ng/mL (Negative) 11/17/23 06:30 U Marijuana (THC) Screen Negative ng/mL (Negative) 11/17/23 06:30 Vitals Last Vital Signs Temp 97.8 F 11/17/23 09:26 Pulse 79 11/17/23 11:27 Resp 16 11/17/23 09:26 BP 100/68 11/17/23 12:56 Pulse Ox 99 11/17/23 11:27 O2 Del Method Room Air 11/17/23 11:27 Discharge Plan Discharge Patient Disposition: Home Condition: Stable Prescriptions: New atorvastatin 40 mg Tablet 40 mg PO BEDTIME Qty: 30 0RF aspirin 81 mg Tablet,Delayed Release (Dr/Ec) 81 mg PO DAILY Qty: 30 0RF Continued Mounjaro 5 mg/0.5 mL pen injector 5 mg SUBCUT Q7D escitalopram oxalate 10 mg tablet 10 mg PO DAILY Qty: 90 1RF Discontinued estradiol 0.5 mg tablet See Rx Instructions .ROUTE .COMPLEX Qty: 90 3RF Dose Instruction: TAKE 1 TABLET BY MOUTH EVERY DAY WITH PROGESTERONE Rx Instructions: TAKE 1 TABLET BY MOUTH EVERY DAY WITH PROGESTERONE progesterone micronized [Prometrium] 100 mg capsule 200 mg PO .bedtime Qty: 60 11RF Rx Instructions: take in conjunction with estradiol ibuprofen [Advil] 200 mg Tablet 200 mg PO Q6H PRN (Reason: Pain) Discharge Orders: Discharge Order (Routine); Ordered 11/17/23 Ordered By: Art Sanchez Referrals: Dharmesh Cantu MD [Physician] - 1 week (Follow up TIA) Yefri Younger MD [Primary Care Provider] - 4-7 days Discharge Diet: Cardiac Discharge Activity: Increase activity as tolerated Patient Instructions: Opioid Safety Activity Restrictions/Additional Instructions: Take all medicine as prescribed Follow-up with neurology 1 week, primary care provider 3 to 5 days Encourage hydration Return for any concerns Discharge Attestations Time Spent in Discharge Care*: greater than 30 min Quality Metrics Clinical Quality Measures [ No reported AMI, CVA or VTE this stay] Coding Level of Care Code 11579 Total time (in minutes) for Discharge: 34 Diagnoses TIA (transient ischemic attack) G45.9
--- NOTE | 2023-11-17 15:25 | PC.OT ---
OT EVALUATION HELD DUE TO SCHEDULED PATIENT D/C TODAY
== END 2023-11-17 16:22 | disposition home or self-care (01) ==
LOC: ER 07:40 → MEDSURG 08:27
PROVIDERS: Admitting Provider Internal Medicine; Emergency Provider Family Medicine; PCP Family Medicine; Visit Provider Internal Medicine
DX: G45.9 Transient cerebral ischemic attack, unspecified (principal); G51.0 Bell's palsy; R27.0 Ataxia, unspecified; H53.8 Other visual disturbances; Z88.1 Allergy status to other antibiotic agents; Z88.5 Allergy status to narcotic agent; Z88.2 Allergy status to sulfonamides; Z91.048 Other nonmedicinal substance allergy status; Z79.899 Other long term (current) drug therapy; F41.1 Generalized anxiety disorder; Z83.2 Family history of diseases of the blood and blood-forming organs and certain disorders involving the immune mechanism
CPT/HCPCS: 36416; 70450; 70496; 70498; 70551; 80053; 80061; 80306; 81003; 82962; 84443; 84702; 85025; 85610; 85730; 93005; 93306; 96361; 96372; 96374; 97161; 99285; G0378; J1650; J7050

== ENCOUNTER 2024-05-02 14:40 | Outpatient (CLI) | payer SELFPAY ==
--- NOTE | 2024-05-02 14:46 | XR_ITS ---
WS: [id number] Lumbar spine, 3 views, 05/02/2024 Clinical Data: low back pain Comparison: None. Findings: No compression fractures or subluxation is seen. No disc space narrowing is seen. The transverse processes and SI joints are normal. XR/XR lumbar spine 2-3V* [id number] Impression: Negative lumbar spine.
== END 2024-05-02 14:41 | disposition home or self-care (01) ==
PROVIDERS: PCP Family Medicine; Visit Provider Registered Nurse Neonatal Intensive Care
DX: M54.50 Low back pain, unspecified (principal)
CPT/HCPCS: 72100

== ENCOUNTER 2024-12-24 15:42 | Emergency (ER) | payer SELFPAY ==
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
--- NOTE | 2024-12-24 15:43 | XR_ITS ---
WS: [id number] Exam: XR shoulder RT min 2V* [id number] Date/Time of Exam: 12/24/2024 3:47 PM Reason For Exam: trauma DLP: No fracture. The joints are preserved. Normal soft tissues. XR/XR shoulder RT min 2V* [id number] IMPRESSION: 1. Normal RIGHT shoulder.
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
[2024-12-24 15:49] VITALS: PULSE 82; RESP 16; TEMP 36.7; O2SAT 98
[2024-12-24 16:13] VITALS: BP 105/70; PULSE 82; RESP 16; O2SAT 97
== END 2024-12-24 16:13 | disposition home or self-care (01) ==
PROVIDERS: Emergency Provider Family Medicine; PCP Family Medicine
DX: M25.531 Pain in right wrist (principal); M25.511 Pain in right shoulder
CPT/HCPCS: 73030; 73110; 99284